=== PATIENT | female | born 1990 ===

== ENCOUNTER 2018-10-07 10:20 | Emergency (ER) | payer OTHER ==
[2018-10-07 10:24] VITALS: BP 123/49; PULSE 72; RESP 18; TEMP 98.2; O2SAT 100
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
== END 2018-10-07 14:40 | disposition home or self-care (01) ==
LOC: H.ER 10:20
DX: S09.90XA Unspecified injury of head, initial encounter (principal); S79.912A Unspecified injury of left hip, initial encounter; M79.10 Myalgia, unspecified site; S43.409A Unspecified sprain of unspecified shoulder joint, initial encounter; V03.90XA Pedestrian on foot injured in collision with car, pick-up truck or van, unspecified whether traffic or nontraffic accident, initial encounter; Y92.410 Unspecified street and highway as the place of occurrence of the external cause
CPT/HCPCS: 72220; 73030; 73060; 73501; 73552; 81025; 96374; 99283; J1885